=== PATIENT | female | born 1960 | race Caucasian/White ===

== ENCOUNTER 2018-11-03 05:59 | Day surgery (SDC) | payer BC ==
[~2018-11-03] VITALS: Ht 167.6 cm; Wt 96.6 kg
[~2018-11-03 05:59] MED LIST: ACEBUTCAFT PO; ALLERCLEAR10 MG PO; AMIT25 PO; CLARITIN5 MG PO; DICLOFONO2.5 GM TOP; ENOX40I SC; GLUC500 PO; HYDCHL12.5 PO; Hair, Skin & N1 EACH PO; Hydrochlorothia25 MG PO; IBUP200; IBUP800 PO; LIDOCAINE PAIN1 EACH TOP; METO25ER PO; Norco 10-325 T1 EACH PO; OMEP20ER PO; ONDA4ODT PO; OXYC5 PO; Omeprazole20 M1 PO; PROM25 PO; STOOL SOFTENER1 EAC1 PO; Toprol Xl50 MG PO; VALA500; ZOLP10 PO; ZYRTEC10 MG PO; [UNRECOGNIZED DRUG - OTHER] PO
--- NOTE | 2018-11-03 07:13 | NUR ---
History, Chart, Medications and Allergies reviewed before start of procedure.Patient confirms NPO status and agrees with scheduled surgery. Patient reports completing Chlorhexadine shower X2 prior to admission to hospital.Surgical site prepped with 2% Chlorhexidine cloth wipe.
[2018-11-03] MEDS ORDERED: LORA.5 PO (12:11)
--- NOTE | 2018-11-03 15:32 | NUR ---
THERAPY IN ROOM.
[2018-11-03] MEDS ORDERED: Colace250 MG PO (15:42)
--- NOTE | 2018-11-03 18:53 | NUR ---
SHIFT SUMMARY PT EATING AND DRINKING WELL. PT UP TO BATHROOM WITH ASSIST FROM FEMALE STAFF PER PT REQ. PT BEEN ASSISTED WITH ADL'S PRN. TEDS, PAS, POLAR PAC IN PLACE. PT PT WORKED [facility], BEEN UP IN RECLINER CHAIR. PT FAMILY/FRIENDS IN/OUT TO VISIT PT. PT USING CALL LIGHT APPR. PT VOIDING. PT HAS APPEARED LESS ANXIOUS SINCE STARTING PAIN MEDICATION AFTER GETTING TO ROOM AND HAVING SNACK.
[2018-11-04 04:51] LABS: BASOPHILS ABSOLUTE AUTO 0.02 K/mm3 (0.00-0.23); BASOPHILS PERCENT AUTO 0 % (0-2); EOSINOPHILS ABSOLUTE AUTO 0.06 K/mm3 (0.00-0.68); EOSINOPHILS PERCENT AUTO 1 % (0-6); Hematocrit 35.5 % (33.0-51.0); Hemoglobin 11.8 g/dL (11.5-16.0); IMMATURE GRAN ABSOLUTE AUTO 0.02 K/mm3 (0.00-0.10); IMMATURE GRAN PERCENT AUTO 0 % (0-1); LYMPHOCYTES ABSOLUTE AUTO 2.04 K/mm3 (0.84-5.20); LYMPHOCYTES PERCENT AUTO 22 % (21-46); MONOCYTES ABSOLUTE AUTO 0.64 K/mm3 (0.16-1.47); MONOCYTES PERCENT AUTO 7 % (4-13); Mean Corpuscular HGB 31.1 pg (26.0-34.0); Mean Corpuscular HGB Conc 33.2 g/dL (31.5-36.5); Mean Corpuscular Volume 94 fL (80-100); Mean Platelet Volume 10.2 fL (9.1-12.4); NEUTROPHILS ABSOLUTE AUTO 6.66 K/mm3 (1.96-9.15); NEUTROPHILS PERCENT AUTO 71 % (41-73); Platelet Count 151 K/mm3 (150-400); RDW Coefficient Variation 11.9 % (11.7-14.2); RDW Standard Deviation 41.1 fL (35.1-46.3); Red Blood Cell Count 3.79 M/mm3 (3.80-5.20); White Blood Cell Count 9.44 K/mm3 (4.00-11.30)
--- NOTE | 2018-11-04 04:54 | NUR ---
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 PT DOING WELL POST OP. VSS, PT MOVING WELL, WALKING IN HALLS AND ROOM. PAIN MANAGED WELL WITH 2 OXY AND 0.5 DILAUDID FOR BREAK THROUGH. SURGICAL SITE WNL. NO SAFETY CONCERNS.
[2018-11-04 05:07] LABS: Anion Gap 6 mmol/L (6-16); Blood Urea Nitrogen 19 mg/dL (8-24); Bun/Creatinine Ratio 29.2 (12.0-20.0); CO2, Blood 27 mmol/L (21-32); Chloride, Blood 106 mmol/L (98-108); Creatinine, Blood 0.65 mg/dL (0.40-1.00); Glomerular Filtration Rate >60 (60-); Glucose, Blood 132 mg/dL (70-99); Potassium, Blood 3.6 mmol/L (3.5-5.5); Sodium, Blood 139 mmol/L (136-145)
[2018-11-04] MEDS ORDERED: Bactrim Ds Tab1 EACH PO (10:21)
[2018-11-04] MEDS ORDERED: ENOX40I SC (10:22)
[2018-11-04] MEDS ORDERED: CLIN300 PO (10:22)
[2018-11-04] MEDS ORDERED: Percocet 5-3251 EACH PO (10:22)
--- NOTE | 2018-11-04 13:08 | NUR ---
PATIENT D/C'D HOME AT THIS TIME WITH DAUGHTER; BOTH STATE UNDERSTANDING OF MEDS, WOUND CARE, F/U APPT, OP PT, ETC. PATIENT STATES PAIN MED EFFECTIVE. TOLERATING PO. NO C/O AT THIS TIME. IV D/C'D LFA.
== END 2018-11-04 13:10 | disposition home or self-care (01) ==
LOC: ORSCMMR 05:59 → ORD 07:30 → SURS 10:56 → ORSCMMR 11-04 13:10
PROVIDERS: Orthopaedic Surgery
PROC: 0SRC0J9 Replacement of Right Knee Joint with Synthetic Substitute, Cemented, Open Approach (ICD-10-PCS; principal; 2018-11-03 07:30)
PROC: 8E0YXBZ Computer Assisted Procedure of Lower Extremity (ICD-10-PCS; principal; 2018-11-03 07:30)
DX: M17.11 Unilateral primary osteoarthritis, right knee (principal); I10 Essential (primary) hypertension; K21.9 Gastro-esophageal reflux disease without esophagitis; Z79.899 Other long term (current) drug therapy
CPT/HCPCS: 36415; 73560-RT; 80048; 83735; 85025; 88300; 97110; 97116; 97162; 97530; C1713; C1776; J0171; J0690; J0735; J1100; J1170; J1650; J1885; J2250; J2405; J2550; J2795; J3010; J3370; J7120

== ENCOUNTER 2018-11-09 18:21 | Emergency (ER) | payer BC ==
[~2018-11-09] VITALS: Ht 167.6 cm; Wt 94.8 kg
[~2018-11-09 18:21] MED LIST changes: +Bactrim Ds Tab1 EACH PO; +CLIN300 PO; +Colace250 MG PO; +LORA.5 PO; +Percocet 5-3251 EACH PO
[2018-11-09 19:07] LABS: BASOPHILS ABSOLUTE AUTO 0.02 K/mm3 (0.00-0.23); BASOPHILS PERCENT AUTO 1 % (0-2); EOSINOPHILS ABSOLUTE AUTO 0.04 K/mm3 (0.00-0.68); EOSINOPHILS PERCENT AUTO 2 % (0-6); Hematocrit 33.5 % (33.0-51.0); Hemoglobin 11.4 g/dL (11.5-16.0); IMMATURE GRAN ABSOLUTE AUTO 0.01 K/mm3 (0.00-0.10); IMMATURE GRAN PERCENT AUTO 0 % (0-1); LYMPHOCYTES ABSOLUTE AUTO 0.18 K/mm3 (0.84-5.20); LYMPHOCYTES PERCENT AUTO 7 % (21-46); MONOCYTES ABSOLUTE AUTO 0.22 K/mm3 (0.16-1.47); MONOCYTES PERCENT AUTO 9 % (4-13); Mean Corpuscular HGB 30.9 pg (26.0-34.0); Mean Platelet Volume 9.5 fL (9.1-12.4); NEUTROPHILS ABSOLUTE AUTO 1.96 K/mm3 (1.96-9.15); NEUTROPHILS PERCENT AUTO 81 % (41-73); Platelet Count 156 K/mm3 (150-400); RDW Standard Deviation 39.9 fL (35.1-46.3); Red Blood Cell Count 3.69 M/mm3 (3.80-5.20); White Blood Cell Count 2.43 K/mm3 (4.00-11.30)
[2018-11-09 19:10] LABS: Mean Corpuscular Volume 91 fL (80-100)
[2018-11-09 21:16] LABS: Alanine Aminotransfer (ALT/SGP 105 U/L (12-78); Albumin, Blood 3.3 g/dL (3.4-5.0); Albumin/Globulin Ratio 0.9 (0.8-1.8); Alk Phos 298 U/L (50-136); Anion Gap 9 mmol/L (6-16); Aspartate Aminotrans (AST/SGOT 126 U/L (12-37); Bilirubin, Total 0.8 mg/dL (0.1-1.0); Blood Urea Nitrogen 14 mg/dL (8-24); Bun/Creatinine Ratio 26.6 (12.0-20.0); CO2, Blood 25 mmol/L (21-32); Calcium, Blood 8.4 mg/dL (8.5-10.1); Chloride, Blood 97 mmol/L (98-108); Creatinine, Blood 0.53 mg/dL (0.40-1.00); Globulin, Blood 3.7 g/dL (2.2-4.0); Glomerular Filtration Rate >60 (60-); Glucose, Blood 132 mg/dL (70-99); Potassium, Blood 3.6 mmol/L (3.5-5.5); Sodium, Blood 131 mmol/L (136-145)
[2018-11-09 21:53] LABS: Influenza A Negative (NEGATIVE); Influenza B Negative (NEGATIVE)
[2018-11-09] MEDS ORDERED: OXYC10ER PO (22:38)
[2018-11-09] MEDS ORDERED: Zofran4 MG PO (22:39)
== END 2018-11-09 22:52 | disposition home or self-care (01) ==
LOC: ER 18:21
PROVIDERS: Emergency Medicine; Physician Assistant
DX: R11.2 Nausea with vomiting, unspecified (principal); T39.1X5A Adverse effect of 4-Aminophenol derivatives, initial encounter; R74.0 Nonspecific elevation of levels of transaminase and lactic acid dehydrogenase [LDH]; G89.18 Other acute postprocedural pain; M25.561 Pain in right knee; Z88.5 Allergy status to narcotic agent; Z79.899 Other long term (current) drug therapy; I10 Essential (primary) hypertension
CPT/HCPCS: 36415; 80053; 83690; 85025; 87804; 96361; 96374; 96375; 96376; 99284-25; J2270; J2405; J2550; J2765; J7030

== ENCOUNTER → 2019-01-05 | Outpatient (CLI) | payer BC ==
[~2019-01-05] MED LIST changes: +OXYC10ER PO; +Zofran4 MG PO
[2019-01-07 15:07] LABS: HPV 16 Positive (Negative); HPV 18 Negative (Negative); HPV OTHER HR TYPES Negative (Negative)
== END | disposition home or self-care (01) ==
LOC: LAB 16:50 → LAB SHORT 16:50
PROVIDERS: Obstetrics & Gynecology
DX: Z12.4 Encounter for screening for malignant neoplasm of cervix (principal)
CPT/HCPCS: 87624; G0123

== ENCOUNTER → 2019-02-15 | Outpatient (CLI) | payer BC | END | disposition home or self-care (01) | LOC: LAB SHORT 07:59 → PLD 07:59 | DX: R87.611 Atypical squamous cells cannot exclude high grade squamous intraepithelial lesion on cytologic smear of cervix (ASC-H) (principal); R87.810 Cervical high risk human papillomavirus (HPV) DNA test positive | CPT/HCPCS: 88305; 88342 ==

== ENCOUNTER → 2019-03-09 | Outpatient (CLI) | payer BC | END | disposition home or self-care (01) | LOC: PLD 08:46 → LAB SHORT 08:46 | DX: D06.1 Carcinoma in situ of exocervix (principal); R87.810 Cervical high risk human papillomavirus (HPV) DNA test positive; R87.613 High grade squamous intraepithelial lesion on cytologic smear of cervix (HGSIL) | CPT/HCPCS: 88305 ==

== ENCOUNTER → 2019-06-28 | Outpatient (CLI) | payer BC ==
[2019-06-30 16:06] LABS: HPV 16 Positive (Negative); HPV 18 Negative (Negative); HPV OTHER HR TYPES Negative (Negative)
== END | disposition home or self-care (01) ==
LOC: LAB 15:16 → LAB SHORT 15:16
PROVIDERS: Obstetrics & Gynecology
DX: R87.611 Atypical squamous cells cannot exclude high grade squamous intraepithelial lesion on cytologic smear of cervix (ASC-H) (principal); R87.810 Cervical high risk human papillomavirus (HPV) DNA test positive
CPT/HCPCS: 87624; 87625; 88142

== ENCOUNTER → 2019-07-11 | Outpatient (CLI) | payer BC ==
[2019-07-11 13:38] LABS: U Amphetamine Screen Not Detected; U Barbituate Screen Not Detected; U Benzodiazapine Screen DETECTED; U Buprenorphine Screen Not Detected; U Cannabinoids Screen Not Detected; U Cocaine Screen Not Detected; U Methadone Screen Not Detected; U Methamphetamine Screen Not Detected; U Opiates Screen Not Detected; U Oxycodone Screen DETECTED; U Phencyclidine Screen Not Detected; U Propoxyphene Screen Not Detected
== END | disposition home or self-care (01) ==
LOC: LAB 12:04 → LAB SHORT 12:04
PROVIDERS: Internal Medicine
DX: Z51.81 Encounter for therapeutic drug level monitoring (principal); Z79.891 Long term (current) use of opiate analgesic
CPT/HCPCS: G0480

== ENCOUNTER → 2019-07-27 | Outpatient (CLI) | payer BC | END | disposition home or self-care (01) | LOC: PLD 08:29 → LAB SHORT 08:29 | DX: D06.0 Carcinoma in situ of endocervix (principal); D06.1 Carcinoma in situ of exocervix | CPT/HCPCS: 88305 ==

== ENCOUNTER → 2019-09-20 | Outpatient (CLI) | payer BC ==
[2019-09-23 13:07] LABS: M-SPIKE, % Not Observed % (Not Observed); PROTEIN,TOTAL,URINE 5.6 mg/dL (Not Estab.)
== END ==
LOC: LAB 06:00 → LAB SHORT 06:00 → LAB FUT 09-13 10:50
PROVIDERS: Internal Medicine
DX: Z00.01 Encounter for general adult medical examination with abnormal findings (principal)
CPT/HCPCS: 81050

== ENCOUNTER 2019-10-06 15:44 | Inpatient (IN) | payer BC ==
[~2019-10-06] VITALS: Ht 165.1 cm; Wt 100.1 kg
[~2019-10-06 15:44] MED LIST changes: +CETI5 PO; +DICLOFENAC SOD100 G1 TOP; +ESOM20 PO; +LIDO700A20 TOP; +METO50ER PO; +Narcan 0.40.4 MG/ML IM
--- NOTE | 2019-10-10 06:54 | NUR ---
History, Chart, Medications and Allergies reviewed before start of procedure. Patient confirms NPO status and agrees with scheduled surgery. Lungs clear T/O to Auscultation. Pre-Op teaching done. Pt verbalizes understanding. Patient reports completing Chlorhexadine shower X2 prior to admission to hospital. PATIENT HAD NO JEWELRY, HEARING DEVICES, DENTURES, OR CONTACTS PRESENT AT ADMIT.
[2019-10-10] MEDS ORDERED: OXYC5 PO (07:13)
[2019-10-10 10:28] LABS: BASOPHILS ABSOLUTE AUTO 0.05 K/mm3 (0.00-0.23); BASOPHILS PERCENT AUTO 1 % (0-2); EOSINOPHILS ABSOLUTE AUTO 0.09 K/mm3 (0.00-0.68); EOSINOPHILS PERCENT AUTO 1 % (0-6); Hematocrit 41.4 % (33.0-51.0); Hemoglobin 13.7 g/dL (11.5-16.0); IMMATURE GRAN ABSOLUTE AUTO 0.05 K/mm3 (0.00-0.10); IMMATURE GRAN PERCENT AUTO 1 % (0-1); LYMPHOCYTES ABSOLUTE AUTO 1.96 K/mm3 (0.84-5.20); LYMPHOCYTES PERCENT AUTO 18 % (21-46); MONOCYTES ABSOLUTE AUTO 0.53 K/mm3 (0.16-1.47); MONOCYTES PERCENT AUTO 5 % (4-13); Mean Corpuscular HGB 31.5 pg (26.0-34.0); Mean Corpuscular HGB Conc 33.1 g/dL (31.5-36.5); Mean Corpuscular Volume 95 fL (80-100); Mean Platelet Volume 10.2 fL (9.1-12.4); NEUTROPHILS ABSOLUTE AUTO 8.28 K/mm3 (1.96-9.15); NEUTROPHILS PERCENT AUTO 76 % (41-73); Platelet Count 159 K/mm3 (150-400); RDW Standard Deviation 42.3 fL (35.1-46.3); Red Blood Cell Count 4.35 M/mm3 (3.80-5.20); White Blood Cell Count 10.96 K/mm3 (4.00-11.30)
--- NOTE | 2019-10-10 11:16 | NUR ---
PT ARRIVED TO UNIT AT APROX 1110. TRANSVERSE ABDOMINAL INCISION W/MEDIPORE DRESSING INTACT, MOD AMT BLOOD PRESENT ON DRESSING. PT HAS MANAGER MOTOR SET UP FOR PAIN MGMT, APPEARS TO BE RESTING COMFORTABLY UPON ARRIVAL TO UNIT BUT REPORTS HER PAIN 07/05. CALL PLACED TO DR KELLY FOR PAIN MGMT AT 1115
--- NOTE | 2019-10-10 14:39 | NUR ---
PAIN PT CONTINUES TO COMPLAIN OF 8/10 PAIN, DECISION WAS MADE TO DC BASKET SORTER AND START PT ON ORAL PAIN MEDICATION. PT MEDICATED WITH 2 5/325 PERCOCET WELL ONE TIME DOSE 25 MCG FENTANYL. WILL ASSESS PAIN IN 1 HOUR AND ADMINISTER 5MG ROXICODONE FOR BREAKTHRU PRN.
--- NOTE | 2019-10-10 17:26 | NUR ---
SHIFT SUMMARY PT POD 0 MARLENA. PT HAS HAD BETTER PAIN CONTROL WITH ORAL PAIN MEDICATION. TRANSVERSE ABDOMINAL INCISION WITH MODERATE AMT DRAINAGE PRESENT ON DRESSING. HEATING PAD TO LOWER BACK. RIVERA PATENT, DRAINING CLEAR YELLOW URINE. TOLERATING REGULAR DIET WITH NO N/V.
--- NOTE | 2019-10-11 00:48 | NUR ---
@ 1930 LOW ABDOMINAL MICROPORE DRESSING REMOVED AND REPLACED. STERI STRIPS IN PLACE, AND SATURATED WITH BLOOD. PATIENT CONTINUES TO HAVE PAIN IN HER ABDOMEN 5-/, ORAL PAIN MEDICATIONS GIVEN. URINARY CATH DRAINING CLEAR YELLOW URINE. 0100, NO FURTHER DRAINING FROM THE LOW ABD SURGICAL SITE.
[2019-10-11 04:48] LABS: BASOPHILS ABSOLUTE AUTO 0.02 K/mm3 (0.00-0.23); BASOPHILS PERCENT AUTO 0 % (0-2); EOSINOPHILS ABSOLUTE AUTO 0.11 K/mm3 (0.00-0.68); EOSINOPHILS PERCENT AUTO 2 % (0-6); Hematocrit 35.7 % (33.0-51.0); Hemoglobin 11.6 g/dL (11.5-16.0); IMMATURE GRAN ABSOLUTE AUTO 0.02 K/mm3 (0.00-0.10); IMMATURE GRAN PERCENT AUTO 0 % (0-1); LYMPHOCYTES ABSOLUTE AUTO 2.16 K/mm3 (0.84-5.20); LYMPHOCYTES PERCENT AUTO 34 % (21-46); MONOCYTES ABSOLUTE AUTO 0.53 K/mm3 (0.16-1.47); MONOCYTES PERCENT AUTO 8 % (4-13); Mean Corpuscular HGB 31.6 pg (26.0-34.0); Mean Corpuscular HGB Conc 32.5 g/dL (31.5-36.5); Mean Corpuscular Volume 97 fL (80-100); Mean Platelet Volume 10.2 fL (9.1-12.4); NEUTROPHILS ABSOLUTE AUTO 3.58 K/mm3 (1.96-9.15); NEUTROPHILS PERCENT AUTO 56 % (41-73); Platelet Count 142 K/mm3 (150-400); RDW Coefficient Variation 12.5 % (11.7-14.2); RDW Standard Deviation 45.1 fL (35.1-46.3); Red Blood Cell Count 3.67 M/mm3 (3.80-5.20); White Blood Cell Count 6.42 K/mm3 (4.00-11.30)
--- NOTE | 2019-10-11 05:58 | NUR ---
SHIFT SUMMARY PATIENT'S PAIN WAS BETTER CONTROLED THIS AM WITH LONGER SPANS BETWEEN PAIN PILLS. SHE ASKED TO HAVE THE CATHETER UNTIL DAY SHIFT, SHE HAS NOT SLEPT WELL. NO ACUTE CHANGES.
--- NOTE | 2019-10-11 19:23 | NUR ---
received report from previous shift rn Krys, pt sitting up in bed, call light within reach, bed rails up, bed in lowest position.
--- NOTE | 2019-10-12 05:36 | NUR ---
shift summary: vss, no acute changes, voiding, tolerating PO, passing flatus, denies n/v, up in room multiple times this shift, appears to be sleeping on nurse rounding. pt rate pain at 5-6/10, medicated per dec. pt expects to be discharged this morning
[2019-10-12] MEDS ORDERED: OXYC5 PO (12:27)
[2019-10-12] MEDS ORDERED: IBU800 M1 PO (12:28)
--- NOTE | 2019-10-12 12:40 | NUR ---
PT D/C TO HOME. SCRIPT GIVEN. PAIN MANAGED, TOLERATING DIET, VOIDING AND PASSING GAS. MOM GIVEN TO ASSIST IN BM.
== END 2019-10-12 12:45 | disposition home or self-care (01) | DRG 741 ==
LOC: SURS 10-10 06:03 → PRE IP 10-10 07:30 → SURS 10-10 11:04
PROVIDERS: ADMIT Obstetrics & Gynecology
PROC: 0UT20ZZ Resection of Bilateral Ovaries, Open Approach (ICD-10-PCS; 2019-10-10)
PROC: 0UT90ZZ Resection of Uterus, Open Approach (ICD-10-PCS; principal; 2019-10-10 07:30)
PROC: 0UT70ZZ Resection of Bilateral Fallopian Tubes, Open Approach (ICD-10-PCS; 2019-10-10 07:30)
DX: D06.9 Carcinoma in situ of cervix, unspecified (principal); I10 Essential (primary) hypertension; K21.9 Gastro-esophageal reflux disease without esophagitis; M19.90 Unspecified osteoarthritis, unspecified site; E66.9 Obesity, unspecified; Z68.37 Body mass index [BMI] 37.0-37.9, adult; I71.2 Thoracic aortic aneurysm, without rupture
CPT/HCPCS: 36415; 85025; 88307; J0690; J1885; J2060; J2250; J2270; J2405; J2704; J2710; J3010; J7120

== ENCOUNTER → 2020-03-13 | Outpatient (CLI) | payer BC ==
[~2020-03-13] MED LIST changes: +IBU800 M1 PO
== END | disposition home or self-care (01) ==
LOC: PLD 15:48 → LAB SHORT 15:48
DX: D22.72 Melanocytic nevi of left lower limb, including hip (principal); D22.5 Melanocytic nevi of trunk
CPT/HCPCS: 88305

== ENCOUNTER → 2020-12-05 | Outpatient (CLI) | payer BC ==
[~2020-12-05] MED LIST changes: +LORA10ER PO; +MELATONIN1 M1 PO; +Magnesium30 MG PO
[2020-12-06 16:11] LABS: HPV 16 Negative (Negative); HPV 18 Negative (Negative); HPV OTHER HR TYPES Negative (Negative)
== END ==
LOC: LAB SHORT 15:54 → LAB 15:54 → PLD 15:54
PROVIDERS: Obstetrics & Gynecology
DX: Z12.72 Encounter for screening for malignant neoplasm of vagina (principal)
CPT/HCPCS: 87624; G0123

== ENCOUNTER 2020-12-10 06:03 | Day surgery (SDC) | payer BC ==
[~2020-12-10] VITALS: Ht 165.1 cm; Wt 94.0 kg
--- NOTE | 2020-12-10 09:22 | NUR ---
DUE TO [facility] DOWNTIME SEE NURSING PROGRESS NOTES PAGE IN CHART.
--- NOTE | 2020-12-10 09:43 | NUR ---
9 CC OF AIR REMOVED OVER 10 MIN FROM NOW DEFLATED RIGHT TR BAND. NO HEMATOMA, NO PULSATILE BLEEDING NON-TENDER. DISCHARGE INSTRUCTIONS REVIEWED BY RAJENDRA MICHAEL AND THIS RN. CALL LIGHT IN REACH.
--- NOTE | 2020-12-10 10:26 | NUR ---
PT AMBULATED TO BR TO VOID. DEFLATED RIGHT TR BAND REMOVED AND POLYMEM PLACED OVER SITE WITH WRIST BOARD IN PLACE. 20 G IV DISCONTINUED FROM LEFT AC WITH INTACT CANNULA. PT ESCORTED OUT VIA WHEELCHAIR ESCORT.
== END 2020-12-10 10:31 | disposition home or self-care (01) ==
LOC: MHTC 06:03
DX: R07.2 Precordial pain (principal); R94.39 Abnormal result of other cardiovascular function study; I10 Essential (primary) hypertension; K21.9 Gastro-esophageal reflux disease without esophagitis; F41.8 Other specified anxiety disorders; E66.9 Obesity, unspecified
CPT/HCPCS: 76937; 93454; 99152; 99153; A9270; C1769; C1894; J1644; J2250; J3010; J7030; J7050; Q9967

== ENCOUNTER 2022-01-08 06:05 | Day surgery (SDC) | payer BC ==
[~2022-01-08] VITALS: Ht 165.1 cm; Wt 101.7 kg
[~2022-01-08 06:05] MED LIST changes: +CARBLEV25 PO
--- NOTE | 2022-01-08 06:36 | NUR ---
Ambulatory in Day Surgery. History, Chart, Medications and Allergies reviewed before start of procedure. Lungs clear T/O to Auscultation. Patient confirms NPO status and agrees with scheduled surgery.
--- NOTE | 2022-01-08 08:40 | NUR ---
01/08/22 0840 Unruly Stevens PT ON SCHEDULED VANCO PRE OPERATIVELY.
--- NOTE | 2022-01-08 18:55 | NUR ---
SHIFT SUMMARY PT POD #0 FOR R HIP ARTHROPLASTY. ABSCESSES REMOVED DURING SURGERY. TREATED FOR PAIN AND NAUSEA PER EMR. PT WORKED WITH PHYSICAL THERAPY AND WAS ABLE TO GET UP TO THE CHAIR WITH A 1 ASSIST W/FWW/GB. SOFT BP'S AFTER SURGERY SO EVENING BP MEDICATION HELD. BP'S HAVE BEEN IMPROVING THIS SHIFT. WILL REPORT TO MALI DREW.
[2022-01-09 04:44] LABS: BASOPHILS ABSOLUTE AUTO 0.05 K/mm3 (0.00-0.23); BASOPHILS PERCENT AUTO 0 % (0-2); EOSINOPHILS ABSOLUTE AUTO 0.01 K/mm3 (0.00-0.68); EOSINOPHILS PERCENT AUTO 0 % (0-6); Hematocrit 31.1 % (33.0-51.0); Hemoglobin 10.4 g/dL (11.5-16.0); IMMATURE GRAN ABSOLUTE AUTO 0.03 K/mm3 (0.00-0.10); IMMATURE GRAN PERCENT AUTO 0 % (0-1); LYMPHOCYTES ABSOLUTE AUTO 0.97 K/mm3 (0.84-5.20); LYMPHOCYTES PERCENT AUTO 9 % (21-46); MONOCYTES PERCENT AUTO 6 % (4-13); Mean Corpuscular HGB 32.7 pg (26.0-34.0); Mean Corpuscular HGB Conc 33.4 g/dL (31.5-36.5); Mean Corpuscular Volume 98 fL (80-100); Mean Platelet Volume 10.6 fL (9.1-12.4); NEUTROPHILS ABSOLUTE AUTO 9.52 K/mm3 (1.96-9.15); NEUTROPHILS PERCENT AUTO 84 % (41-73); Platelet Count 145 K/mm3 (150-400); RDW Coefficient Variation 12.2 % (11.7-14.2); RDW Standard Deviation 43.7 fL (35.1-46.3); Red Blood Cell Count 3.18 M/mm3 (3.80-5.20); White Blood Cell Count 11.28 K/mm3 (4.00-11.30)
--- NOTE | 2022-01-09 04:45 | NUR ---
HOME CARE MANAGER RN SUMMARY POD0 R TOTAL HIP. AAOX4 AND PLEASANT. PAIN WELL MANAGED WITH SCHEDULED TORADOL/TYLENOL AND PRN OXYCODONE. PT HAS HAD SOME NAUSEA OFF/ON THROUGH THE NIGHT AND YESTERDAY WHICH HAS BEEN WELL MANAGED WITH REGLAN. PT HAS AMBULATED WITH ASSIST IN THE HALLS AND HAS VOIDED. SBP'S SUSTAINING 110-120'S. WILL CONTINUE TO MONITOR.
[2022-01-09 04:58] LABS: Anion Gap 8 mmol/L (6-16); Blood Urea Nitrogen 20 mg/dL (8-24); Bun/Creatinine Ratio 33.2 (12.0-20.0); CO2, Blood 24 mmol/L (21-32); Calcium, Blood 7.8 mg/dL (8.5-10.1); Chloride, Blood 108 mmol/L (98-108); Glomerular Filtration Rate >60 (60-); Glucose, Blood 144 mg/dL (70-99); Magnesium, Blood 1.9 mg/dL (1.6-2.4); Potassium, Blood 3.8 mmol/L (3.5-5.5); Sodium, Blood 140 mmol/L (136-145)
--- NOTE | 2022-01-09 15:35 | NUR ---
DISCHARGE SUMMARY PT POD #1 FOR R HIP ARTHROPLASTY. FOAM DRESSING CHANGED TO AQUACELS ON R HIP BY SURGEON THIS AM. AQUACELS HAVE A SMALL AMOUNT OF DISCHARGE BUT OTHERWISE CDI. PT WITH PARKINSONS AND C/O FOOT TREMOR THIS SHIFT BUT IS ABLE TO GET UP WELL WITH A SBA W/FWW/GB. VSS. EXHIBITED UNDERSTANDING OF DC INSTRUCTIONS AND ALREADY PICKED UP PRESCRIPTION MEDICATIONS AND HAS THEM AT HOME. DISCHARGED HOME WITH .
== END 2022-01-09 15:23 | disposition home or self-care (01) ==
LOC: ORSCMMR 06:05 → ORD 07:30 → ORSCMMR 07:30 → SURS 12:29 → ORSCMMR 01-09 15:23
PROVIDERS: Orthopaedic Surgery
PROC: 0SR90JA Replacement of Right Hip Joint with Synthetic Substitute, Uncemented, Open Approach (ICD-10-PCS; principal; 2022-01-08 07:30)
PROC: 8E0YXBZ Computer Assisted Procedure of Lower Extremity (ICD-10-PCS; principal; 2022-01-08 07:30)
DX: M16.11 Unilateral primary osteoarthritis, right hip (principal); Z96.642 Presence of left artificial hip joint; Z96.651 Presence of right artificial knee joint; E66.9 Obesity, unspecified; Z68.36 Body mass index [BMI] 36.0-36.9, adult; I10 Essential (primary) hypertension; K21.9 Gastro-esophageal reflux disease without esophagitis; F41.8 Other specified anxiety disorders; G20 Parkinson's disease; Z79.899 Other long term (current) drug therapy
CPT/HCPCS: 36415; 72170; 80048; 83735; 85025; 97110; 97116; 97162; 97166; 97530; 97535; A9270; C1713; C1776; J0171; J0690; J0735; J1100; J1170; J1650; J1885; J2250; J2370; J2405; J2550; J2704; J2765; J2795; J3010; J3370; J7050; J7120

== ENCOUNTER 2022-01-13 17:58 | Inpatient (IN) | payer BC ==
[~2022-01-13] VITALS: Ht 165.1 cm; Wt 140.1 kg
[2022-01-13 18:45] LABS: Hematocrit 29.8 % (33.0-51.0); Hemoglobin 10.4 g/dL (11.5-16.0); Mean Corpuscular HGB 32.3 pg (26.0-34.0); Mean Corpuscular HGB Conc 34.9 g/dL (31.5-36.5); Mean Corpuscular Volume 93 fL (80-100); Mean Platelet Volume 10.9 fL (9.1-12.4); Platelet Count 136 K/mm3 (150-400); RDW Coefficient Variation 12.5 % (11.7-14.2); RDW Standard Deviation 42.2 fL (35.1-46.3); Red Blood Cell Count 3.22 M/mm3 (3.80-5.20); White Blood Cell Count 3.35 K/mm3 (4.00-11.30)
[2022-01-13 19:03] LABS: BAND PERCENT MAN 3 % (0-8); BASOPHILS PERCENT MAN 0 % (0-2); EOSINOPHILS ABSOLUTE MAN 0.03 K/mm3 (0.00-0.68); EOSINOPHILS PERCENT MAN 1 % (0-6); LYMPHOCYTES % ATYPICAL MANUAL 5 % (0-0); LYMPHOCYTES ABSOLUTE MAN 1.03 K/mm3 (0.84-5.20); LYMPHOCYTES PERCENT MAN 26 % (21-46); MONOCYTES ABSOLUTE MAN 0.23 K/mm3 (0.16-1.47); MONOCYTES PERCENT MAN 7 % (4-13); NEUTROPHILS ABSOLUTE MAN 2.04 K/mm3 (1.96-9.15); SEG NEUTROPHILS PERCENT MAN 58 % (41-73); TOTAL CELLS COUNTED 100
[2022-01-13 19:27] LABS: Alanine Aminotransfer (ALT/SGP 32 U/L (12-78); Albumin, Blood 2.8 g/dL (3.4-5.0); Albumin/Globulin Ratio 0.8 (0.8-1.8); Alk Phos 260 U/L (50-136); Anion Gap 5 mmol/L (6-16); Aspartate Aminotrans (AST/SGOT 167 U/L (12-37); Blood Urea Nitrogen 11 mg/dL (8-24); Bun/Creatinine Ratio 15.2 (12.0-20.0); CO2, Blood 25 mmol/L (21-32); Calcium, Blood 8.5 mg/dL (8.5-10.1); Chloride, Blood 103 mmol/L (98-108); Creatinine, Blood 0.73 mg/dL (0.40-1.00); Globulin, Blood 3.6 g/dL (2.2-4.0); Glomerular Filtration Rate >60 (60-); Glucose, Blood 115 mg/dL (70-99); Potassium, Blood 3.3 mmol/L (3.5-5.5); Sodium, Blood 133 mmol/L (136-145); Total Protein, Blood 6.4 g/dL (6.4-8.2)
[2022-01-13 21:40] LABS: International Normalized Ratio 1.02; Prothrombin Time Results 10.7 Sec (9.7-11.5)
[2022-01-13 21:47] LABS: Source, Urine Clean Catch
[2022-01-13 21:49] LABS: Blood, Urine 1+ (Neg); Glucose Qualitative, Urine Neg (Neg); Ketones, Urine 4+ (Neg); Leukocyte Esterase, Urine 1+ (Neg); Nitrite, Urine Neg (Neg); Protein, Urine 2+ (Neg); Specific Gravity, Urine 1.015 (1.003-1.022); Urobilinogen, Urine 2+ (Normal); pH, Urine 6.5 (5.0-8.0)
[2022-01-13 22:06] LABS: Appearance, Urine Hazy (Clear); Bilirubin, Urine 2+ (Neg); Color, Urine Amber (P-Yellow)
[2022-01-13 22:19] LABS: Bacteria Mod /hpf; Mucus Mod (0-Heavy); Squamous Epithelial Cells Mod /hpf (Few)
[2022-01-13 22:20] LABS: Hyaline Casts 0-2 /lpf (0-2)
[2022-01-14 01:22] LABS: Influenza A, PCR NEGATIVE (NEGATIVE); Influenza B, PCR NEGATIVE (NEGATIVE); Resp Syncytial Virus, PCR NEGATIVE (NEGATIVE); SARS-Cov-2 (COVID-19) PCR, MMC NEGATIVE (NEGATIVE)
--- NOTE | 2022-01-14 04:41 | NUR ---
ADMITTED THIS PT.FROM ED RELATED TO POSSIBLE WOUND INFECTION FROM RECENT R HIP ARTHROPLASTY. LONG INCISION TO POSTERIOR PART OF R HIP WITH NATALIA INTACT, NOTED ABOUT 3/4 INCH OPEN AREA, BRUISE AT A SIZE OF BIGGER THAN A QUARTER ALONG SIDE OF THE NATALIA, WASHED WITYH WOUND CLEANSER THEN AQUACEL APPLIED. 2 OTHER SMALL INCISION SITES WITH AQUACEL C/D/I.R HIP WITH REDNESS, SWELLING & WARM TO TOUCH. IV POTASSIUM STARTED BUT STOPPED AFTER RUNNING ABOUT 15 MINUTES PT. WAS CRYING RELATED TO PAIN TO IV SITE, TRANSFERRED TO ANOTHER IV SITE WITH NS CONCURRENTLY INFUSING BUT PT. CRIED AGAIN FOR THE SAME PAIN & DECIDED TO REFUSE POTASSIUM INFUSION, WILL REPORT TO MANUEL RN TO NOTIFY HARINDER ENRIQUEZ.PT.IS AOX4, AMBULATES TO BATHROOM WITH WALKER & GAITBELT WITH 1 PERSON ASSIST. JOSE JUAN HOOKS & SCDs TO BLE. NPO SINCE ADMISSION. ON TELEMETRY AT SR AT 72 PER BRICK SHADER. ICEPACK APPLIED TO R HIP.NO ACUTE CHANGES NOTED, WILL CONTINUE TO MONITOR.
[2022-01-14 04:57] LABS: Hematocrit 28.3 % (33.0-51.0); Hemoglobin 9.6 g/dL (11.5-16.0); Mean Corpuscular HGB 32.2 pg (26.0-34.0); Mean Corpuscular HGB Conc 33.9 g/dL (31.5-36.5); Mean Corpuscular Volume 95 fL (80-100); Mean Platelet Volume 10.7 fL (9.1-12.4); NRBC ABSOLUTE 0.02 K/mm3 (0.00-0.02); NRBC Auto 0.4 /100 WBC (0.0-0.2); Platelet Count 128 K/mm3 (150-400); RDW Coefficient Variation 12.5 % (11.7-14.2); RDW Standard Deviation 43.2 fL (35.1-46.3); Red Blood Cell Count 2.98 M/mm3 (3.80-5.20); White Blood Cell Count 4.77 K/mm3 (4.00-11.30)
[2022-01-14 05:14] LABS: Alanine Aminotransfer (ALT/SGP 23 U/L (12-78); Albumin, Blood 2.7 g/dL (3.4-5.0); Albumin/Globulin Ratio 0.8 (0.8-1.8); Alk Phos 223 U/L (50-136); Anion Gap 9 mmol/L (6-16); Aspartate Aminotrans (AST/SGOT 90 U/L (12-37); Bilirubin, Total 0.9 mg/dL (0.1-1.0); Blood Urea Nitrogen 10 mg/dL (8-24); Bun/Creatinine Ratio 18.7 (12.0-20.0); CO2, Blood 23 mmol/L (21-32); Calcium, Blood 8.1 mg/dL (8.5-10.1); Chloride, Blood 103 mmol/L (98-108); Creatinine, Blood 0.54 mg/dL (0.40-1.00); Globulin, Blood 3.2 g/dL (2.2-4.0); Glomerular Filtration Rate >60 (60-); Glucose, Blood 107 mg/dL (70-99); Sodium, Blood 135 mmol/L (136-145); Total Protein, Blood 5.9 g/dL (6.4-8.2)
[2022-01-14 05:31] LABS: BAND PERCENT MAN 21 % (0-8); BASOPHILS PERCENT MAN 0 % (0-2); EOSINOPHILS PERCENT MAN 0 % (0-6); LYMPHOCYTES % ATYPICAL MANUAL 3 % (0-0); LYMPHOCYTES ABSOLUTE MAN 0.85 K/mm3 (0.84-5.20); LYMPHOCYTES PERCENT MAN 15 % (21-46); MONOCYTES ABSOLUTE MAN 0.38 K/mm3 (0.16-1.47); MONOCYTES PERCENT MAN 8 % (4-13); NEUTROPHILS ABSOLUTE MAN 3.52 K/mm3 (1.96-9.15); SEG NEUTROPHILS PERCENT MAN 53 % (41-73); TOTAL CELLS COUNTED 100
--- NOTE | 2022-01-14 06:01 | NUR ---
[id number] DE PAZ PT. IS CRYING FOR R HIP PAIN, FENTANYL IS NOT AVAILABLE, TYLENOL IS AVAILABLE BUT PT. IS ON NPO, A STAFF CALLED ME BACK & TOLD ME THAT DR. DE PAZ IS DOING A PROCEDURE RIGHT NOW, WILL CALL SOON HE BECOMES AVAILABLE, PT. NOTIFIED & SAID " OKAY".
--- NOTE | 2022-01-14 06:15 | NUR ---
DR. DE PAZ CALLED BACK, TELEPHONE ORDER RECEIVED TO GIVE DILAUDID 1 - 2 MG IV Q 6 HRS. PRN FOR PAIN. ALSO NOTIFIED OF IV POTASSIUM THAT PT. REFUSED RELATED TO IV ACCESS PAIN, ORDER RECEIVED TO GIVE POTASSIUM 40 MEQ PO X 1, TORB.
[2022-01-14 08:37] LABS: BASOPHILS ABSOLUTE AUTO 0.01 K/mm3 (0.00-0.23); BASOPHILS PERCENT AUTO 0 % (0-2); EOSINOPHILS PERCENT AUTO 0 % (0-6); Hematocrit 27.6 % (33.0-51.0); Hemoglobin 9.3 g/dL (11.5-16.0); IMMATURE GRAN ABSOLUTE AUTO 0.03 K/mm3 (0.00-0.10); IMMATURE GRAN PERCENT AUTO 1 % (0-1); LYMPHOCYTES ABSOLUTE AUTO 0.77 K/mm3 (0.84-5.20); LYMPHOCYTES PERCENT AUTO 18 % (21-46); MONOCYTES ABSOLUTE AUTO 0.36 K/mm3 (0.16-1.47); MONOCYTES PERCENT AUTO 8 % (4-13); Mean Corpuscular HGB 32.1 pg (26.0-34.0); Mean Corpuscular HGB Conc 33.7 g/dL (31.5-36.5); Mean Corpuscular Volume 95 fL (80-100); Mean Platelet Volume 10.4 fL (9.1-12.4); NEUTROPHILS PERCENT AUTO 73 % (41-73); Platelet Count 109 K/mm3 (150-400); RDW Coefficient Variation 12.8 % (11.7-14.2); RDW Standard Deviation 44.1 fL (35.1-46.3); White Blood Cell Count 4.37 K/mm3 (4.00-11.30)
--- NOTE | 2022-01-14 18:57 | NUR ---
SHIFT SUMMARY- PT IS A/O, PLESANT AND COOPERATIVE. SHE IS EATING AND DRINKING WELL. SHE IS BEING TREATED FOR PAIN AND NAUSEA THIS SHIFT NEEDED. DR. LERMA SAW THE PT THIS MORNING AND DECIDED AGAINST ADDITIONAL SURGERY. SHE IS RECIEVING PAIN MEDICATION PRN. SHE HAD SEVERAL LOOSE STOOLS THIS MORNING WHICH RESOLVED. HER BED IS IN THE LOW POSITION AND CALL LIGHT IS WITIN REACH.
[2022-01-14 22:32] LABS: Vancomycin, Trough 9.8 ug/mL (5.0-10.0)
--- NOTE | 2022-01-15 03:00 | NUR ---
SHIFT SUMMARY: PT. AOX4, C/O R HIP PAIN MEDICATED PER EMAR. ABD DRESSING REINFORCED IT KEEPS FALLING EVERYTIME PT. GETS UP TO USE THE BATHROOM, NO DRAINAGE NOTED. EDEMA TO L HIP, WITH REDNESS & WARM TO TOUCH. THIS SUPERVISOR CONTINUOUS WELD PIPE MILL STATED THAT SHE FEELS BETTER NOW THAN YESTERDAY SHE CAN WALK BETTER & CAN BEND HER KNEE A LITTLE BIT WHICH SHE CAAN NOT DO ON PREVIOUS DAYS. PERSONAL POLAR PACK PLACED. AMBULATES TO BATHROOM WITH WALKER & GAITBELT ON 1 PERSON ASSIST. ABLE TO MAKE NEEDS KNOWN, USES CALL LIGHT,CLWR. NO ACUTE CHANGES NOTED, WILL CONTINUE TO MONITOR.
[2022-01-15 05:09] LABS: BASOPHILS ABSOLUTE AUTO 0.01 K/mm3 (0.00-0.23); BASOPHILS PERCENT AUTO 0 % (0-2); EOSINOPHILS PERCENT AUTO 0 % (0-6); Hematocrit 25.5 % (33.0-51.0); Hemoglobin 8.5 g/dL (11.5-16.0); Mean Corpuscular HGB 32.3 pg (26.0-34.0); Mean Corpuscular HGB Conc 33.3 g/dL (31.5-36.5); Mean Corpuscular Volume 97 fL (80-100); Platelet Count 108 K/mm3 (150-400); RDW Coefficient Variation 13.1 % (11.7-14.2); RDW Standard Deviation 45.6 fL (35.1-46.3); Red Blood Cell Count 2.63 M/mm3 (3.80-5.20); White Blood Cell Count 5.31 K/mm3 (4.00-11.30)
[2022-01-15 05:18] LABS: IMMATURE GRAN ABSOLUTE AUTO 0.04 K/mm3 (0.00-0.10); IMMATURE GRAN PERCENT AUTO 1 % (0-1); LYMPHOCYTES ABSOLUTE AUTO 1.48 K/mm3 (0.84-5.20); LYMPHOCYTES PERCENT AUTO 28 % (21-46); MONOCYTES ABSOLUTE AUTO 0.41 K/mm3 (0.16-1.47); MONOCYTES PERCENT AUTO 8 % (4-13); NEUTROPHILS ABSOLUTE AUTO 3.37 K/mm3 (1.96-9.15); NEUTROPHILS PERCENT AUTO 63 % (41-73)
[2022-01-15 06:00] LABS: Albumin, Blood 2.4 g/dL (3.4-5.0); Anion Gap 9 mmol/L (6-16); Blood Urea Nitrogen 9 mg/dL (8-24); Bun/Creatinine Ratio 11.5 (12.0-20.0); CO2, Blood 24 mmol/L (21-32); Calcium, Blood 7.5 mg/dL (8.5-10.1); Chloride, Blood 105 mmol/L (98-108); Creatinine, Blood 0.78 mg/dL (0.40-1.00); Glomerular Filtration Rate >60 (60-); Glucose, Blood 99 mg/dL (70-99); Phosphorus, Blood 2.1 mg/dL (2.5-4.9); Potassium, Blood 3.2 mmol/L (3.5-5.5); Sodium, Blood 138 mmol/L (136-145)
--- NOTE | 2022-01-15 16:01 | NUR ---
SHIFT SUMMARY: POD 7 RIGHT HIP PATIENT IS ALERT AND ORIENTED X4. VS ARE WNL AND IS ON RA. PAIN IS MANAGED WITH PO DERIK AND ADVIL. RIGHT HIP HAS XEROFORM AND ABD PAD WITH TAPE THAT IS C/D/I. SHE IS A SBA WITH FWW AND GAIT BELT. TOLERATING PO INTAKE AND IS VOIDING. SHE IS SITTING IN BED WITH CALL LIGHT IN REACH. THE PLAN IS TO POSSIBLY DISCHARGE HOME TOMORROW IF APPROPRIATE AND AFTER MORNING LABS.
[2022-01-16 05:16] LABS: Albumin, Blood 2.3 g/dL (3.4-5.0); Anion Gap 7 mmol/L (6-16); Blood Urea Nitrogen 11 mg/dL (8-24); Bun/Creatinine Ratio 8.5 (12.0-20.0); CO2, Blood 24 mmol/L (21-32); Calcium, Blood 7.8 mg/dL (8.5-10.1); Chloride, Blood 107 mmol/L (98-108); Creatinine, Blood 1.29 mg/dL (0.40-1.00); Glomerular Filtration Rate 42 (60-); Glucose, Blood 112 mg/dL (70-99); Phosphorus, Blood 3.2 mg/dL (2.5-4.9); Potassium, Blood 3.2 mmol/L (3.5-5.5); Sodium, Blood 138 mmol/L (136-145)
[2022-01-16 05:28] LABS: BASOPHILS ABSOLUTE AUTO 0.02 K/mm3 (0.00-0.23); BASOPHILS PERCENT AUTO 0 % (0-2); EOSINOPHILS PERCENT AUTO 0 % (0-6); Hematocrit 24.9 % (33.0-51.0); Hemoglobin 8.2 g/dL (11.5-16.0); IMMATURE GRAN ABSOLUTE AUTO 0.05 K/mm3 (0.00-0.10); IMMATURE GRAN PERCENT AUTO 1 % (0-1); LYMPHOCYTES ABSOLUTE AUTO 1.45 K/mm3 (0.84-5.20); LYMPHOCYTES PERCENT AUTO 26 % (21-46); MONOCYTES ABSOLUTE AUTO 0.51 K/mm3 (0.16-1.47); MONOCYTES PERCENT AUTO 9 % (4-13); Mean Corpuscular HGB 32.5 pg (26.0-34.0); Mean Corpuscular HGB Conc 32.9 g/dL (31.5-36.5); Mean Corpuscular Volume 99 fL (80-100); Mean Platelet Volume 10.5 fL (9.1-12.4); NEUTROPHILS ABSOLUTE AUTO 3.64 K/mm3 (1.96-9.15); NEUTROPHILS PERCENT AUTO 64 % (41-73); Platelet Count 126 K/mm3 (150-400); RDW Coefficient Variation 13.3 % (11.7-14.2); RDW Standard Deviation 47.3 fL (35.1-46.3); Red Blood Cell Count 2.52 M/mm3 (3.80-5.20); White Blood Cell Count 5.67 K/mm3 (4.00-11.30)
--- NOTE | 2022-01-16 05:39 | NUR ---
STONE CARRIAGE OPERATOR SUMMARY NO ACUTE CHANGES THIS SHIFT. PT AAOX4 AND PLEASANT. CONTINUES IV ABX. MEDICATED FOR PAIN AND ANXIETY AT BEDTIME. PT HAS SLEPT WELL MOST OF THE NIGHT. R HIP DRESSING C/D/I. PT EAGER TO GO HOME TODAY. VSS, WILL CONTINUE TO MONITOR.
[2022-01-16] MEDS ORDERED: LINE600 PO (09:31)
[2022-01-16] MEDS ORDERED: Acetaminophen650 M1 PO (09:56)
[2022-01-16] MEDS ORDERED: ENOX40I SC (09:57)
[2022-01-16] MEDS ORDERED: IBUP400 PO (09:58)
[2022-01-16] MEDS ORDERED: OXYC5 PO (09:58)
[2022-01-16] MEDS ORDERED: VISBIOME 112.51 EACH PO (09:59)
[2022-01-16] MEDS ORDERED: Aspir 8181 MG PO (10:00)
--- NOTE | 2022-01-16 12:34 | NUR ---
DRESSING CHANGES AND DISCHARGE INSTRUCTIONS REVIEWED WITH PATIENT AND HER . 10 DAYS OF DRESSING SUPPLIES PROVIDED TO PATIENT. PT/SPOUSE QUESTIONS ANSWERED AND PATIENT AND HER SPOUSE ARE IN AGREMENT WITH PLAN TO DISCHARGE TO HOME. 1210 DISCHARGED TO HOME
--- NOTE | 2022-01-16 12:45 | NUR ---
NOTED ORDER FOR [facility] AFTER PATIENT HAD DISCHARGED. SPOKE WITH DR RAYGOZA. SURJIT ONE TABLET PHONED TO LUIS VANESSA [facility]
== END 2022-01-16 12:10 | disposition home or self-care (01) | DRG 863 ==
LOC: ER 17:58 → EDBEDREQ 01-14 00:05 → ERHOLD 01-14 00:17 → SURS 01-14 00:17
PROVIDERS: Family Medicine; Orthopaedic Surgery; Physician Assistant; Student in an Organized Health Care Education/Training Program; ADMIT Internal Medicine
DX: T81.41XA Infection following a procedure, superficial incisional surgical site, initial encounter (principal); E87.2 Acidosis; E87.1 Hypo-osmolality and hyponatremia; I95.9 Hypotension, unspecified; E83.39 Other disorders of phosphorus metabolism; E87.6 Hypokalemia; D69.6 Thrombocytopenia, unspecified; D64.9 Anemia, unspecified; Z20.822 Contact with and (suspected) exposure to COVID-19; K21.9 Gastro-esophageal reflux disease without esophagitis; I10 Essential (primary) hypertension; G89.18 Other acute postprocedural pain; D72.819 Decreased white blood cell count, unspecified; Y83.9 Surgical procedure, unspecified as the cause of abnormal reaction of the patient, or of later complication, without mention of misadventure at the time of the procedure; Z96.641 Presence of right artificial hip joint; Z79.899 Other long term (current) drug therapy; Z98.890 Other specified postprocedural states
CPT/HCPCS: 0241U; 36415; 73502; 73701; 80053; 80069; 80202; 81001; 83605; 85025; 85610; 85651; 85730; 86140; 86141; 87040; 87086; 93005; 93010; 96374; 96375; 97110; 97112; 97116; 97161; 97165; 97530; 97535; 99284-25; A9270; J1170; J1650; J2405; J2543; J3010; J3370; J3475; J3480; J7030; J7050; Q9967

== ENCOUNTER 2022-02-05 06:06 | Inpatient (IN) | payer BC ==
[~2022-02-05] VITALS: Ht 165.1 cm; Wt 99.4 kg
[~2022-02-05 06:06] MED LIST changes: +Acetaminophen650 M1 PO; +Aspir 8181 MG PO; +IBUP400 PO; +LINE600 PO; +VISBIOME 112.51 EACH PO
--- NOTE | 2022-02-05 06:38 | NUR ---
BROUGHT IN IN WHEEL CHAIR. History, Chart, Medications and Allergies reviewed before start of procedure. Patient confirms NPO status and agrees with scheduled surgery. Patient States Post-Procedure ride home has been arranged.
--- NOTE | 2022-02-05 13:45 | NUR ---
PT DRAIN LINES PAPER TAPE FELL OFF. AWARE THAT PT HAD A REACTION TO TAPE. PLACED TEGADERM ON DRAIN LINES OVER PAPER TAPE WITHOUT TOUCHING ANY SKIN. CUSTOMIZED UNDERWEAR TO HELP WITH NOT PULLING AT HEMOVAC DRAIN LINES. PT FULLY AWARE OF AND DENIES CONCERNS ABOUT DRESSING.
--- NOTE | 2022-02-05 15:13 | NUR ---
PATIENT CAME BACK FROM DAY SURGERY TODAY 02/05/22 AT 1500. POD 0 I&D RIGHT HIP PATIENT IS ALERT AND ORIENTED X4. VS ARE WNL AND IS ON RA. PATIENT DENIES PAIN AT THIS TIME. HER TWO HEMOVACS ARE C/D/I WITH BRIGHT RED OUTPUT. ABD PADS ON RIGHT HIP WITH THE HEMOVACS ARE ALSO C/D/I. PATIENT IS A SBA WITH FWW AND GAIT BELT TO THE BATHROOM. PATIENT IS TOLERATING SMALL AMOUNTS OF PO INTAKE AND IS VOIDING. PHYSICAL THERAPY IS IN THE ROOM AT THIS TIME. CALL LIGHT WITHIN REACH.
--- NOTE | 2022-02-05 19:10 | NUR ---
NO ACUTE CHANEGS SINCE ARRIVAL. AMBULATED TO WELL MULTIPLE TIMES W/ FWW & GB SBA. UP TO CHAIR FOR DINNER. VSS ON RA. DRESSING TO R HIP, C/D/I. WILL REPORT TO ONCOMING RN.
--- NOTE | 2022-02-06 03:08 | NUR ---
PT IS A&OX4, VSS AND CALLS APPROPRIATELY. PT IS ABLE TO AMBULATE FREELY TO BR WITH FWW, MINIMAL ASSIST. POST OP DAY 1 FOR I&D OF RIGHT HIP. SCHEDULED ABX, TORADOL AND TYLENOL. PT DENIES PAIN AND IS ABLE TO SLEEP 7+ HOURS THIS SHIFT. HAS 2 HEMOVAC DRAINS ON RIGHT SIDE PRODUCING SEROSANG FLUID. NO TAPE IS TO BE USED ON THIS PT DUE TO AN ALLERGIC REACTION. PT TOLERATING REG DIET AND PO FLUIDS. WILL CONTINUE TO MONITOR THIS PATIENT.
[2022-02-06 03:45] LABS: BASOPHILS ABSOLUTE AUTO 0.03 K/mm3 (0.00-0.23); BASOPHILS PERCENT AUTO 1 % (0-2); EOSINOPHILS PERCENT AUTO 0 % (0-6); Hematocrit 25.1 % (33.0-51.0); Hemoglobin 8.2 g/dL (11.5-16.0); IMMATURE GRAN ABSOLUTE AUTO 0.02 K/mm3 (0.00-0.10); IMMATURE GRAN PERCENT AUTO 0 % (0-1); LYMPHOCYTES ABSOLUTE AUTO 0.82 K/mm3 (0.84-5.20); LYMPHOCYTES PERCENT AUTO 15 % (21-46); MONOCYTES ABSOLUTE AUTO 0.39 K/mm3 (0.16-1.47); MONOCYTES PERCENT AUTO 7 % (4-13); Mean Corpuscular HGB 31.2 pg (26.0-34.0); Mean Corpuscular HGB Conc 32.7 g/dL (31.5-36.5); Mean Corpuscular Volume 95 fL (80-100); Mean Platelet Volume 10.3 fL (9.1-12.4); NEUTROPHILS ABSOLUTE AUTO 4.05 K/mm3 (1.96-9.15); NEUTROPHILS PERCENT AUTO 76 % (41-73); Platelet Count 133 K/mm3 (150-400); RDW Coefficient Variation 12.8 % (11.7-14.2); RDW Standard Deviation 44.7 fL (35.1-46.3); Red Blood Cell Count 2.63 M/mm3 (3.80-5.20); White Blood Cell Count 5.31 K/mm3 (4.00-11.30)
[2022-02-06 03:57] LABS: Anion Gap 8 mmol/L (6-16); Blood Urea Nitrogen 13 mg/dL (8-24); C-REACTIVE PROTEIN, EXT RANGE <0.290 mg/dL (0.000-0.300); CO2, Blood 25 mmol/L (21-32); Calcium, Blood 7.9 mg/dL (8.5-10.1); Chloride, Blood 109 mmol/L (98-108); Creatinine, Blood 0.68 mg/dL (0.40-1.00); Glomerular Filtration Rate >60 (60-); Glucose, Blood 150 mg/dL (70-99); Magnesium, Blood 1.8 mg/dL (1.6-2.4); Potassium, Blood 3.4 mmol/L (3.5-5.5); Sodium, Blood 142 mmol/L (136-145)
[2022-02-06 08:41] LABS: BODY FLUID RBC 0.121 M/mm3 (0-0); RBC Count, Synovial Fluid 121000 /mm3 (0-0); WBC Count, Synovial Fluid 731 /mm3 (0-180)
[2022-02-06 08:59] LABS: Lymphs, Synovial Fluid 24 % (0-15); Monocytes/Macrophages, Synovia 66 % (0-65); Neutrophils, Synovial Fluid 10 % (0-24)
[2022-02-06 09:26] LABS: Appearance, Synovial Fluid Bloody (Clear); Color, Synovial Fluid Red (None-P Yel)
--- NOTE | 2022-02-06 09:49 | NUR ---
PT'S IV FOUND TO HAVE SOME INFLAMMATION AROUND THE INSERTION SITE. ABLE TO PUSH 10ML NS WITH NO FURTHER INFLAMMTION OR DISCOMFORT.
--- NOTE | 2022-02-06 09:51 | NUR ---
IV TO BE DCed AND REPLACED. UNSUCCESSFUL IV ATTEMPT X2. PT REQUESTED TAKING A BREAK BEFORE FURTHER IV ATTEMPTS ARE MADE.
--- NOTE | 2022-02-06 18:24 | NUR ---
SHIFT SUMMARY DR LERMA ASSESSED PT'S SURGICAL WOUND DURING ROUNDING AT START OF SHIFT. PT IV REMOVED DUE TO INFILTRATION. PICC LINE PLAED IN L UPPER ARM. PT UP TO CHAIR, OCCASIONALLY AMBULATING TO BATHROOM WITH WALKER. MEDICATIONS GIVEN ORDERED THROUGHOUT THE SHIFT. PT REQUESTED AVOIDING NARCOTIC USE FOR PAIN CONTROL. PT REPORTED CONCERN ABOUT WARMTH ON THE LATERAL ASPECT OF HER UPPER LEGS BILATERALLY. NO OBVIOUS REDNESS OR ABNORMAL WARMTH NOTED UPON ASSESSMENT. PT TOLERATING DIET WELL. PT IS RELAXING AND EATING DINNER AT THIS TIME.
--- NOTE | 2022-02-07 05:12 | NUR ---
SHIFT SUMMARY PT IS POD#1 I&D TO RIGHT HIP, FOLLOWING AN ALLERGIC REACTION TO ADHESIVE WITH AQUACELL DRESSING FROM A RIGHT TOTAL HIP DONE 4 WEEKS AGO. ON RIGHT HIP, HER INCISION IS COVERED WITH 2 ABD, SECURED WITH TAPE, DRESSING IS C/D/I. TWO HEMOVACS ARE IN PLACE AND DRAINING SANGUINOUS FLUID, THEY ARE LABELLED DEEP AND SUPERFICIAL. PT IS WBAT, OBSERVING POSTERIOR HIP PRECAUTIONS. PT IS ON MECHANICAL DVT PREVENTION - SCD'S AND JOSE JUAN HOSE AT ALL TIMES. PT IS AMBULATING WITH FWW. SHE IS VOIDING WITH OUT DIFFICULTY. PICC LINE FLUSHES WELL. A&O X4. PT WITH MANY QUESTIONS, REPORTS HX OF ANXIETY, WHICH SHE HAS SOUGHT COUNSELING FOR. PT STATES SHE IS ANXIOUS AND SCARED, AND WANTS TO AVOID A FUTURE INFECTION.
--- NOTE | 2022-02-07 06:40 | NUR ---
DR. RAPHAEL AT BEDSIDE WITH ORDERS. DR. RAPHAEL REMOVED HEMOVAC DRAINS DUE TO SCANT OUTPUT, AND COMPLETED DRESSING CHANGE. WITH ORDERS: PT MAY DISCHARGE HOME, BUT NEEDS HOME HEALTH FOR EDUCATION ON SELF-ADMINISTERING ANTIBIOTICS THROUGH PICC LINE. PT WILL NEED PHARMACY INVOLVED IN DISCHARGE PLANNING, TO MANAGE VANCO TROUGH LEVEL DRAWS. PT WILL NEED SUPPLIES: THREE WEEKS WORTH OF CHLOREHEXADINE WIPES, THREE WEEKS WORTH OF WOUND CARE SUPPLIES (GAUZE, ABD BANDAGES, PAPER TAPE), AND HOME HEALTH NURSING TO PERFORM WEEKLY PICC LINE DRESSING CHANGES. THIS RN WILL DISCUSS DISCHARGE PLANNING ORDERS WITH DAY SHIFT NURSE.
[2022-02-07 08:54] LABS: Vancomycin, Trough 20.9 ug/mL (5.0-10.0)
[2022-02-07] MEDS ORDERED: Percocet 5-3251 EACH PO ×2 (17:33)
[2022-02-07] MEDS ORDERED: CEFTRIAXONE2 G1 IV ×2 (17:34)
[2022-02-07] MEDS ORDERED: VANCOMYCIN HCL1 G1 IV ×2 (17:42)
--- NOTE | 2022-02-07 18:15 | NUR ---
SHIFT SUMMARY PT IS UP AND AMBULATING TO THE BATHROOM THROUGHOUT THE DAY. PT ABLE TO PASS A BM DURING THE MORNING AND URINATING WITHOUT DIFFICULTY THROUGHOUT THE SHIFT. PT ALSO ABLE TO AMBULATE THROUGH THE HALLWAY TWO TIMES DURING THIS SHIFT. PER DR LERMA, PT IS TO BE DISCHARGED W/ CONTINUED TREATMENT FROM [facility]. PER PHARMACY, PT NEEDS A VANCOMYCIN TROUGH DRAWN AT 2000 AND A VANCOMYCIN TREATMENT FOLLOWING THE RESULTS OF THE TROUGH BEFORE SHE CAN BE DISCHARGED. PT PAIN CONTROLLED W/ ACETAMINOPHEN AND TORADOL. ALL MEDS GIVEN ORDERED. PT RESTING PEACEFULLY IN ROOM AT THIS TIME.
[2022-02-07 20:26] LABS: Vancomycin, Trough 17.9 ug/mL (5.0-10.0)
--- NOTE | 2022-02-07 20:34 | NUR ---
DISCHARGE SUMMARY DISCUSSED DISCHARGE INFORMATION WITH THE PATIENT, CHANGED PICC DRESSING USING STERILE TECHNIQUE, DISCUSSED OUTPATIENT [facility]C CLINIC INFUSION SCHEDULE, HOME CARE OF SURGICAL SITE AND PICC SITE. DISCUSSED FOLLOW UP APPOINTMENTS AND CONTACT INFORMATION SHOULD FURTHER QUESTIONS COME UP AFTER DISCHARGE. IV VANCOMYCIN INFUSING THEN PATIENT WILL HAVE HER PICC LINE FLUSHED BY NOC RN AND WILL THEN BE ABLE TO GO HOME.
--- NOTE | 2022-02-07 23:03 | NUR ---
DISCHARGE NOTE AT 2230, PT WAS ESCORTED WITH ALL PERSONAL BELONGINGS AND , VIA WHEELCHAIR TO PERSONAL VEHICLE. PT WAS TRANSFERRED WITHOUT ISSUE TO PERSONAL VEHICLE DRIVEN BY . PT'S PICC LINE WAS C/D/I AND FLUSHED WITH 30MLS OF SALINE . DISCHARGE TEACHING PERFORMED BY DAY SHIFT NURSE. PT WITH NO FURTHER QUESTIONS. PT VERBALIZES UNDERSTANDING OF APPT TOMORROW WITH OUTPATIENT CLINIC TO CONTINUE ANTIBIOTIC TREATMENT. PT GIVEN SCRIPT FOR OUTPT MEDICATION.
== END 2022-02-07 22:30 | disposition home or self-care (01) | DRG 902 ==
LOC: ORSCMMR 06:06 → ORD 11:00 → ORSCMMR 11:00 → SURS 11:07 → ORSCMMR 11:07 → SURS 14:45
PROVIDERS: Pharmacist; ADMIT Orthopaedic Surgery
PROC: 0JBL0ZZ Excision of Right Upper Leg Subcutaneous Tissue and Fascia, Open Approach (ICD-10-PCS; 2022-02-05)
PROC: 02HV33Z Insertion of Infusion Device into Superior Vena Cava, Percutaneous Approach (ICD-10-PCS; principal; 2022-02-06)
DX: T81.31XA Disruption of external operation (surgical) wound, not elsewhere classified, initial encounter (principal); L76.34 Postprocedural seroma of skin and subcutaneous tissue following other procedure; I10 Essential (primary) hypertension; K21.9 Gastro-esophageal reflux disease without esophagitis; F32.A Depression, unspecified; G20 Parkinson's disease; Z96.641 Presence of right artificial hip joint; Z98.890 Other specified postprocedural states; Z90.710 Acquired absence of both cervix and uterus; Z91.09 Other allergy status, other than to drugs and biological substances; Y83.8 Other surgical procedures as the cause of abnormal reaction of the patient, or of later complication, without mention of misadventure at the time of the procedure; Z79.899 Other long term (current) drug therapy
CPT/HCPCS: 36415; 80048; 80202; 82565; 83735; 85025; 85651; 86140; 88304; 89051; 97110; 97116; 97162; 97165; 97530; A9270; J0171; J0696; J0735; J1100; J1170; J1885; J2250; J2405; J2704; J2795; J3010; J3260; J3370; J7030; J7050; J7120

== ENCOUNTER 2022-02-08 01:10 | Day surgery (SDC) | payer BC ==
[~2022-02-08 01:10] MED LIST changes: +CEFTRIAXONE2 G1 IV; +VANCOMYCIN HCL1 G1 IV
--- NOTE | 2022-02-09 14:57 | NUR ---
PT DID NOT GET BID ROCEPHIN TODAY THIS RN DID NOT SEE BID NOR DID PHARMACY, WILL ALERT PT THAT SHE GETS IT BID
== END 2022-02-08 17:29 | disposition home or self-care (01) ==
LOC: ATC 01:10
DX: T84.51XA Infection and inflammatory reaction due to internal right hip prosthesis, initial encounter (principal); L03.115 Cellulitis of right lower limb
CPT/HCPCS: J0696; J3370; J7050

== ENCOUNTER 2022-02-09 07:10 | Day surgery (SDC) | payer BC | END 2022-02-09 16:52 | disposition home or self-care (01) | LOC: ATC 07:10 | DX: T84.51XA Infection and inflammatory reaction due to internal right hip prosthesis, initial encounter (principal); L03.115 Cellulitis of right lower limb | CPT/HCPCS: J0696; J3370; J7050; J7060 ==

== ENCOUNTER 2022-02-10 01:25 | Day surgery (SDC) | payer BC ==
[~2022-02-10] VITALS: Ht 165.1 cm; Wt 99.4 kg
[2022-02-10 08:28] LABS: Creatinine, Blood 0.49 mg/dL (0.40-1.00); Vancomycin, Trough 14.1 ug/mL (5.0-10.0)
== END 2022-02-10 17:30 | disposition home or self-care (01) ==
LOC: ATC 01:25
PROVIDERS: Orthopaedic Surgery
DX: T84.51XA Infection and inflammatory reaction due to internal right hip prosthesis, initial encounter (principal); L03.115 Cellulitis of right lower limb
CPT/HCPCS: 80202; 82565; J0696; J3370; J7050; J7060

== ENCOUNTER 2022-02-11 01:45 | Day surgery (SDC) | payer BC | END 2022-02-11 17:30 | disposition home or self-care (01) | LOC: ATC 01:45 | DX: T84.51XA Infection and inflammatory reaction due to internal right hip prosthesis, initial encounter (principal); L03.115 Cellulitis of right lower limb | CPT/HCPCS: J0696; J3370; J7050 ==

== ENCOUNTER 2022-02-13 01:32 | Day surgery (SDC) | payer BC | END 2022-02-13 17:19 | disposition home or self-care (01) | LOC: ATC 01:32 | DX: T84.51XA Infection and inflammatory reaction due to internal right hip prosthesis, initial encounter (principal); L03.115 Cellulitis of right lower limb | CPT/HCPCS: 96365; 96367; 96375; J0696; J3370; J7060 ==

== ENCOUNTER 2022-02-14 00:53 | Day surgery (SDC) | payer BC | END 2022-02-14 17:10 | disposition home or self-care (01) | LOC: ATC 00:53 | DX: T84.51XA Infection and inflammatory reaction due to internal right hip prosthesis, initial encounter (principal); L03.115 Cellulitis of right lower limb; Y79.2 Prosthetic and other implants, materials and accessory orthopedic devices associated with adverse incidents | CPT/HCPCS: J0696; J3370; J7060 ==

== ENCOUNTER 2022-02-15 04:23 | Day surgery (SDC) | payer BC ==
[2022-02-15 07:39] LABS: Creatinine, Blood 0.49 mg/dL (0.40-1.00); Vancomycin, Trough 15.3 ug/mL (5.0-10.0)
== END 2022-02-15 17:06 | disposition home or self-care (01) ==
LOC: ATC 04:23
PROVIDERS: Orthopaedic Surgery
DX: T84.51XA Infection and inflammatory reaction due to internal right hip prosthesis, initial encounter (principal); L03.115 Cellulitis of right lower limb
CPT/HCPCS: 80202; 82565; J0696; J3370; J7060

== ENCOUNTER 2022-02-16 02:26 | Day surgery (SDC) | payer BC | END 2022-02-16 17:02 | disposition home or self-care (01) | LOC: ATC 02:26 | DX: T84.51XA Infection and inflammatory reaction due to internal right hip prosthesis, initial encounter (principal); L03.115 Cellulitis of right lower limb; Y79.2 Prosthetic and other implants, materials and accessory orthopedic devices associated with adverse incidents | CPT/HCPCS: J0696; J3370; J7050; J7060 ==

== ENCOUNTER 2022-02-18 00:51 | Day surgery (SDC) | payer BC ==
[2022-02-18 08:46] LABS: Vancomycin, Trough 16.3 ug/mL (5.0-10.0)
== END 2022-02-18 17:32 | disposition home or self-care (01) ==
LOC: ATC 00:51
PROVIDERS: Orthopaedic Surgery
DX: T84.51XA Infection and inflammatory reaction due to internal right hip prosthesis, initial encounter (principal); L03.115 Cellulitis of right lower limb; Y79.2 Prosthetic and other implants, materials and accessory orthopedic devices associated with adverse incidents
CPT/HCPCS: 80202; 82565; J0696; J3370; J7060

== ENCOUNTER 2022-02-19 01:02 | Day surgery (SDC) | payer BC ==
[2022-02-19 08:23] LABS: BASOPHILS ABSOLUTE AUTO 0.05 K/mm3 (0.00-0.23); BASOPHILS PERCENT AUTO 1 % (0-2); EOSINOPHILS ABSOLUTE AUTO 0.09 K/mm3 (0.00-0.68); EOSINOPHILS PERCENT AUTO 2 % (0-6); Hematocrit 29.6 % (33.0-51.0); Hemoglobin 9.5 g/dL (11.5-16.0); IMMATURE GRAN ABSOLUTE AUTO 0.01 K/mm3 (0.00-0.10); IMMATURE GRAN PERCENT AUTO 0 % (0-1); LYMPHOCYTES ABSOLUTE AUTO 1.13 K/mm3 (0.84-5.20); LYMPHOCYTES PERCENT AUTO 21 % (21-46); MONOCYTES ABSOLUTE AUTO 0.36 K/mm3 (0.16-1.47); MONOCYTES PERCENT AUTO 7 % (4-13); Mean Corpuscular HGB 31.3 pg (26.0-34.0); Mean Corpuscular HGB Conc 32.1 g/dL (31.5-36.5); Mean Corpuscular Volume 97 fL (80-100); Mean Platelet Volume 10.9 fL (9.1-12.4); NEUTROPHILS ABSOLUTE AUTO 3.63 K/mm3 (1.96-9.15); NEUTROPHILS PERCENT AUTO 69 % (41-73); Platelet Count 158 K/mm3 (150-400); RDW Coefficient Variation 13.1 % (11.7-14.2); RDW Standard Deviation 46.6 fL (35.1-46.3); Red Blood Cell Count 3.04 M/mm3 (3.80-5.20); White Blood Cell Count 5.27 K/mm3 (4.00-11.30)
== END 2022-02-19 17:24 | disposition home or self-care (01) ==
LOC: ATC 01:02
PROVIDERS: Orthopaedic Surgery
DX: T84.51XA Infection and inflammatory reaction due to internal right hip prosthesis, initial encounter (principal); L03.115 Cellulitis of right lower limb
CPT/HCPCS: 85025; 85651; 86140; J0696; J3370; J7060

== ENCOUNTER 2022-02-21 01:08 | Day surgery (SDC) | payer BC ==
[2022-02-21 08:37] LABS: Creatinine, Blood 0.49 mg/dL (0.40-1.00); Vancomycin, Trough 14.5 ug/mL (5.0-10.0)
== END 2022-02-21 17:37 | disposition home or self-care (01) ==
LOC: ATC 01:08
PROVIDERS: Orthopaedic Surgery
DX: T84.51XA Infection and inflammatory reaction due to internal right hip prosthesis, initial encounter (principal); L03.115 Cellulitis of right lower limb
CPT/HCPCS: 80202; 82565; J0696; J3370; J7060

== ENCOUNTER 2022-02-22 00:42 | Day surgery (SDC) | payer BC | END 2022-02-22 17:16 | disposition home or self-care (01) | LOC: ATC 00:42 | DX: T84.51XA Infection and inflammatory reaction due to internal right hip prosthesis, initial encounter (principal); L03.115 Cellulitis of right lower limb | CPT/HCPCS: J0696; J3370; J7060 ==

== ENCOUNTER 2022-02-23 07:14 | Day surgery (SDC) | payer BC | END 2022-02-23 17:07 | disposition home or self-care (01) | LOC: ATC 07:14 | DX: T84.51XA Infection and inflammatory reaction due to internal right hip prosthesis, initial encounter (principal); L03.115 Cellulitis of right lower limb | CPT/HCPCS: J0696; J3370; J7060 ==

== ENCOUNTER 2022-02-24 01:17 | Day surgery (SDC) | payer BC ==
[2022-02-24 08:15] LABS: Creatinine, Blood 0.51 mg/dL (0.40-1.00); Vancomycin, Trough 14.3 ug/mL (5.0-10.0)
== END 2022-02-24 17:06 | disposition home or self-care (01) ==
LOC: ATC 01:17
PROVIDERS: Orthopaedic Surgery
DX: T84.51XA Infection and inflammatory reaction due to internal right hip prosthesis, initial encounter (principal); L03.115 Cellulitis of right lower limb; Y83.8 Other surgical procedures as the cause of abnormal reaction of the patient, or of later complication, without mention of misadventure at the time of the procedure
CPT/HCPCS: 80202; 82565; J0696; J3370; J7060

== ENCOUNTER 2022-02-25 01:15 | Day surgery (SDC) | payer BC | END 2022-02-25 17:24 | disposition home or self-care (01) | LOC: ATC 01:15 | DX: T84.51XA Infection and inflammatory reaction due to internal right hip prosthesis, initial encounter (principal); L03.115 Cellulitis of right lower limb | CPT/HCPCS: J0696; J3370; J7060 ==

== ENCOUNTER 2022-02-26 00:28 | Day surgery (SDC) | payer BC | END 2022-02-26 17:16 | disposition home or self-care (01) | LOC: ATC 00:28 | DX: T84.51XA Infection and inflammatory reaction due to internal right hip prosthesis, initial encounter (principal); L03.115 Cellulitis of right lower limb | CPT/HCPCS: J0696; J3370; J7060 ==

== ENCOUNTER 2022-02-28 00:15 | Day surgery (SDC) | payer BC | END 2022-02-28 17:03 | disposition home or self-care (01) | LOC: ATC 00:15 | DX: T84.51XA Infection and inflammatory reaction due to internal right hip prosthesis, initial encounter (principal); L03.115 Cellulitis of right lower limb | CPT/HCPCS: J0696; J3370; J7060 ==

== ENCOUNTER 2022-03-01 07:20 | Day surgery (SDC) | payer BC | END 2022-03-01 17:47 | disposition home or self-care (01) | LOC: ATC 07:20 | DX: T84.51XA Infection and inflammatory reaction due to internal right hip prosthesis, initial encounter (principal); L03.115 Cellulitis of right lower limb | CPT/HCPCS: J0696; J3370; J7060 ==

== ENCOUNTER 2022-03-02 02:22 | Day surgery (SDC) | payer BC ==
[2022-03-02 08:21] LABS: Creatinine, Blood 0.49 mg/dL (0.40-1.00); Vancomycin, Trough 12.9 ug/mL (5.0-10.0)
== END 2022-03-02 17:17 | disposition home or self-care (01) ==
LOC: ATC 02:22
PROVIDERS: Orthopaedic Surgery
DX: T84.51XA Infection and inflammatory reaction due to internal right hip prosthesis, initial encounter (principal); L03.115 Cellulitis of right lower limb
CPT/HCPCS: 80202; 82565; J0696; J3370; J7060

== ENCOUNTER 2022-03-03 01:48 | Day surgery (SDC) | payer BC | END 2022-03-03 17:18 | disposition home or self-care (01) | LOC: ATC 01:48 | DX: T84.51XA Infection and inflammatory reaction due to internal right hip prosthesis, initial encounter (principal); L03.115 Cellulitis of right lower limb | CPT/HCPCS: J0696; J3370; J7060 ==

== ENCOUNTER 2022-03-04 02:53 | Day surgery (SDC) | payer BC | END 2022-03-04 17:25 | disposition home or self-care (01) | LOC: ATC 02:53 | DX: T84.51XA Infection and inflammatory reaction due to internal right hip prosthesis, initial encounter (principal); L03.115 Cellulitis of right lower limb; Y79.8 Miscellaneous orthopedic devices associated with adverse incidents, not elsewhere classified; Z79.82 Long term (current) use of aspirin; Z79.899 Other long term (current) drug therapy | CPT/HCPCS: J0696; J3370; J7060 ==

== ENCOUNTER 2022-03-06 00:55 | Day surgery (SDC) | payer BC | END 2022-03-06 22:43 | disposition home or self-care (01) | LOC: ATC 00:55 | DX: T84.51XA Infection and inflammatory reaction due to internal right hip prosthesis, initial encounter (principal); L03.115 Cellulitis of right lower limb; Y79.2 Prosthetic and other implants, materials and accessory orthopedic devices associated with adverse incidents | CPT/HCPCS: 96365; 96375; 96376; J0696; J3370; J7060 ==

== ENCOUNTER 2022-03-07 01:06 | Day surgery (SDC) | payer BC | END 2022-03-07 16:47 | disposition home or self-care (01) | LOC: ATC 01:06 | DX: T84.51XA Infection and inflammatory reaction due to internal right hip prosthesis, initial encounter (principal); L03.115 Cellulitis of right lower limb; Y79.2 Prosthetic and other implants, materials and accessory orthopedic devices associated with adverse incidents | CPT/HCPCS: J0696; J3370; J7060 ==

== ENCOUNTER 2022-03-08 02:18 | Day surgery (SDC) | payer BC ==
[2022-03-08 08:04] LABS: Creatinine, Blood 0.66 mg/dL (0.40-1.00); Vancomycin, Trough 17.9 ug/mL (5.0-10.0)
== END 2022-03-08 17:00 | disposition home or self-care (01) ==
LOC: ATC 02:18
PROVIDERS: Orthopaedic Surgery
DX: T84.51XA Infection and inflammatory reaction due to internal right hip prosthesis, initial encounter (principal); L03.115 Cellulitis of right lower limb; Y79.2 Prosthetic and other implants, materials and accessory orthopedic devices associated with adverse incidents
CPT/HCPCS: 80202; 82565; J0696; J3370; J7060

== ENCOUNTER 2022-03-09 07:15 | Day surgery (SDC) | payer BC | END 2022-03-09 16:59 | disposition home or self-care (01) | LOC: ATC 07:15 | DX: T84.51XA Infection and inflammatory reaction due to internal right hip prosthesis, initial encounter (principal); L03.115 Cellulitis of right lower limb; Y79.2 Prosthetic and other implants, materials and accessory orthopedic devices associated with adverse incidents | CPT/HCPCS: J0696; J3370; J7060 ==

== ENCOUNTER 2022-03-10 01:05 | Day surgery (SDC) | payer BC | END 2022-03-10 22:47 | disposition home or self-care (01) | LOC: ATC 01:05 | DX: T84.51XA Infection and inflammatory reaction due to internal right hip prosthesis, initial encounter (principal); L03.115 Cellulitis of right lower limb | CPT/HCPCS: J0696; J3370; J7060 ==

== ENCOUNTER 2022-03-13 03:00 | Day surgery (SDC) | payer BC ==
[2022-03-13 08:00] LABS: BASOPHILS ABSOLUTE AUTO 0.05 K/mm3 (0.00-0.23); BASOPHILS PERCENT AUTO 1 % (0-2); EOSINOPHILS ABSOLUTE AUTO 0.28 K/mm3 (0.00-0.68); EOSINOPHILS PERCENT AUTO 5 % (0-6); Hematocrit 38.4 % (33.0-51.0); Hemoglobin 11.9 g/dL (11.5-16.0); IMMATURE GRAN ABSOLUTE AUTO 0.02 K/mm3 (0.00-0.10); IMMATURE GRAN PERCENT AUTO 0 % (0-1); LYMPHOCYTES PERCENT AUTO 16 % (21-46); MONOCYTES ABSOLUTE AUTO 0.47 K/mm3 (0.16-1.47); MONOCYTES PERCENT AUTO 9 % (4-13); Mean Corpuscular HGB 28.3 pg (26.0-34.0); Mean Corpuscular Volume 91 fL (80-100); Mean Platelet Volume 11.1 fL (9.1-12.4); NEUTROPHILS ABSOLUTE AUTO 3.84 K/mm3 (1.96-9.15); NEUTROPHILS PERCENT AUTO 69 % (41-73); Platelet Count 192 K/mm3 (150-400); RDW Coefficient Variation 12.5 % (11.7-14.2); White Blood Cell Count 5.56 K/mm3 (4.00-11.30)
== END 2022-03-13 17:10 | disposition home or self-care (01) ==
LOC: ATC 03:00
PROVIDERS: Orthopaedic Surgery
DX: T84.51XA Infection and inflammatory reaction due to internal right hip prosthesis, initial encounter (principal); L03.115 Cellulitis of right lower limb
CPT/HCPCS: 85025; 85651; 86140; 96365; 96375; 96376; J0696; J3370; J7060

== ENCOUNTER 2022-03-14 01:02 | Day surgery (SDC) | payer BC ==
[2022-03-14 08:13] LABS: Creatinine, Blood 0.65 mg/dL (0.40-1.00); Vancomycin, Trough 17.1 ug/mL (5.0-10.0)
== END 2022-03-14 16:56 | disposition home or self-care (01) ==
LOC: ATC 01:02
PROVIDERS: Orthopaedic Surgery
DX: T84.51XA Infection and inflammatory reaction due to internal right hip prosthesis, initial encounter (principal); L03.115 Cellulitis of right lower limb
CPT/HCPCS: 80202; 82565; J0696; J3370; J7060

== ENCOUNTER 2022-03-15 02:13 | Day surgery (SDC) | payer BC | END 2022-03-15 23:39 | disposition home or self-care (01) | LOC: ATC 02:13 | DX: T84.51XA Infection and inflammatory reaction due to internal right hip prosthesis, initial encounter (principal); L03.115 Cellulitis of right lower limb; Y79.2 Prosthetic and other implants, materials and accessory orthopedic devices associated with adverse incidents | CPT/HCPCS: J0696; J3370; J7060 ==

== ENCOUNTER 2022-03-16 00:54 | Day surgery (SDC) | payer BC | END 2022-03-16 16:58 | disposition home or self-care (01) | LOC: ATC 00:54 | DX: T84.51XA Infection and inflammatory reaction due to internal right hip prosthesis, initial encounter (principal); L03.115 Cellulitis of right lower limb; Y79.2 Prosthetic and other implants, materials and accessory orthopedic devices associated with adverse incidents | CPT/HCPCS: J0696; J3370; J7060 ==

== ENCOUNTER 2022-03-18 07:34 | Day surgery (SDC) | payer BC | END 2022-03-18 17:00 | disposition home or self-care (01) | LOC: ATC 07:34 | DX: T84.51XA Infection and inflammatory reaction due to internal right hip prosthesis, initial encounter (principal); L03.115 Cellulitis of right lower limb; Y79.2 Prosthetic and other implants, materials and accessory orthopedic devices associated with adverse incidents | CPT/HCPCS: 96365; 96375; 96376; J0696; J3370; J7060 ==

== ENCOUNTER 2022-03-19 01:00 | Day surgery (SDC) | payer BC | END 2022-03-19 16:50 | disposition home or self-care (01) | LOC: ATC 01:00 | DX: T84.51XA Infection and inflammatory reaction due to internal right hip prosthesis, initial encounter (principal); L03.115 Cellulitis of right lower limb | CPT/HCPCS: 96365; 96375; 96376; J0696; J3370; J7060 ==

== ENCOUNTER → 2022-05-14 | Outpatient (CLI) | payer BC | END | disposition home or self-care (01) | LOC: LAB 11:00 → LAB SHORT 11:00 | DX: J02.9 Acute pharyngitis, unspecified (principal) | CPT/HCPCS: 87077; 87081; 87185 ==

== ENCOUNTER → 2022-10-09 | Outpatient (CLI) | payer BC ==
[2022-10-14 15:10] LABS: HPV 16 Negative (Negative); HPV 18 Negative (Negative); HPV OTHER HR TYPES Negative (Negative)
== END | disposition home or self-care (01) ==
LOC: LAB 13:30 → LAB SHORT 13:30
PROVIDERS: Obstetrics & Gynecology
DX: Z12.4 Encounter for screening for malignant neoplasm of cervix (principal)
CPT/HCPCS: 87624; G0123

== ENCOUNTER 2024-11-11 15:03 | Emergency (ER) | payer BC ==
[~2024-11-11] VITALS: Ht 177.8 cm; Wt 97.5 kg
[2024-11-11 15:06] VITALS: BP 153/106
[2024-11-11 15:45] LABS: BASOPHILS ABSOLUTE AUTO 0.04 K/mm3 (0.00-0.23); BASOPHILS PERCENT AUTO 1 % (0-2); EOSINOPHILS ABSOLUTE AUTO 0.14 K/mm3 (0.00-0.68); EOSINOPHILS PERCENT AUTO 2 % (0-6); Hematocrit 44.2 % (33.0-51.0); Hemoglobin 15.3 g/dL (11.5-16.0); IMMATURE GRAN ABSOLUTE AUTO 0.03 K/mm3 (0.00-0.10); IMMATURE GRAN PERCENT AUTO 0 % (0-1); LYMPHOCYTES ABSOLUTE AUTO 1.38 K/mm3 (0.84-5.20); LYMPHOCYTES PERCENT AUTO 20 % (21-46); MONOCYTES ABSOLUTE AUTO 0.47 K/mm3 (0.16-1.47); MONOCYTES PERCENT AUTO 7 % (4-13); Mean Corpuscular HGB 32.2 pg (26.0-34.0); Mean Corpuscular HGB Conc 34.6 g/dL (31.5-36.5); Mean Corpuscular Volume 93 fL (80-100); Mean Platelet Volume 9.9 fL (9.1-12.4); NEUTROPHILS ABSOLUTE AUTO 4.97 K/mm3 (1.96-9.15); NEUTROPHILS PERCENT AUTO 71 % (41-73); Platelet Count 167 K/mm3 (150-400); RDW Coefficient Variation 12.4 % (11.7-14.2); RDW Standard Deviation 42.7 fL (35.1-46.3); Red Blood Cell Count 4.75 M/mm3 (3.80-5.20); White Blood Cell Count 7.03 K/mm3 (4.00-11.30)
[2024-11-11 16:08] LABS: Albumin, Blood 3.5 g/dL (3.4-5.0); Bilirubin, Total 0.8 mg/dL (0.1-1.0); Bun/Creatinine Ratio 30.9 (12.0-20.0); Calcium, Blood 9.8 mg/dL (8.5-10.1); Creatinine, Blood 0.61 mg/dL (0.40-1.00); Globulin, Blood 3.4 g/dL (2.2-4.0); Potassium, Blood 4.1 mmol/L (3.5-5.5); Total Protein, Blood 6.9 g/dL (6.4-8.2)
[2024-11-11] MEDS ORDERED: Ketorolac Tromethamine 15mg Vial IV ONE (17:55)
[2024-11-11] MEDS ORDERED: Cephalexin Monohydrate 500 MG Cap PO ONE (19:30)
[2024-11-11] MEDS ORDERED: OxyCODONE 10/Acetamin 325 TABLET PO ONE (19:30)
[2024-11-11] MEDS ORDERED: CEPH500 PO (19:32)
== END 2024-11-11 19:57 | disposition home or self-care (01) ==
LOC: ER 15:03
PROVIDERS: Student in an Organized Health Care Education/Training Program
DX: L03.115 Cellulitis of right lower limb (principal); L03.317 Cellulitis of buttock; I10 Essential (primary) hypertension; M19.90 Unspecified osteoarthritis, unspecified site; Z79.899 Other long term (current) drug therapy; Z91.048 Other nonmedicinal substance allergy status
CPT/HCPCS: 72170; 72193; 80053; 85025; 93005; 93010; 96374; 99284-25; A9270; J1885; Q9967